=== PATIENT | female | born 1985 | race Caucasian/White ===

== ENCOUNTER 2019-06-22 14:25 | Emergency (ER) | payer OTHER ==
[~2019-06-22] VITALS: Ht 160 cm; Wt 88.3 kg
[2019-06-22 14:33] VITALS: BP 133/89
--- NOTE | 2019-06-22 15:14 | NUR ---
TO ROOM FROM TRIAGE
[2019-06-22] MEDS ORDERED: DEXAMETHASONE 4 MG TABLET ONE (15:39)
--- NOTE | 2019-06-22 15:42 | NUR ---
MEDICATED PER EMAR
--- NOTE | 2019-06-22 15:52 | NUR ---
PROVIDED W/ TAXI VOUCHER
[2019-06-22] MEDS ORDERED: DEXAMETHASONE 4 MG TABLET PO ONE (16:00)
== END 2019-06-22 15:54 | disposition home or self-care (01) ==
LOC: ED 15:30
DX: B34.9 Viral infection, unspecified (principal)
CPT/HCPCS: 71046; 87081; 87880; 99284

== ENCOUNTER 2019-06-24 19:04 | Emergency (ER) | payer OTHER ==
[~2019-06-24] VITALS: Ht 160 cm; Wt 97.3 kg
[2019-06-24] MEDS ORDERED: DEXAMETHASONE 4 MG/ML, 1ML ONE (19:35)
[2019-06-24] MEDS ORDERED: ALBUTEROL SULFATE 2.5 MG/3 ML ONE (19:42)
--- NOTE | 2019-06-24 19:52 | NUR ---
RT AT BS
[2019-06-24] MEDS ORDERED: DEXAMETHASONE 4 MG/ML, 1ML PO ONE (20:00)
[2019-06-24] MEDS ORDERED: ALBUTEROL SULFATE 2.5 MG/3 ML NPPB ONE (20:00)
[2019-06-24 20:25] VITALS: BP 135/91
== END 2019-06-24 20:49 | disposition home or self-care (01) ==
LOC: ED 19:26
DX: B34.9 Viral infection, unspecified (principal)
CPT/HCPCS: 94640; 99283; J1100; J7613